=== PATIENT | female | born 1980 | race Hispanic/Latino ===

== ENCOUNTER 2019-02-18 19:40 | Emergency (ER) | payer OTHER ==
[2019-02-18 20:37] VITALS: BP 138/79; PULSE 56; RESP 16; TEMP 99; O2SAT 100
[2019-02-18] MEDS ORDERED: Tdap Vaccine 0.5 ml Vial (10-64 yrs) IM ONE ×2 (20:56→21:45)
--- NOTE | 2019-02-18 21:16 | ED PDOC ---
HPI: Skin/Bite Injury Time Seen by Provider: 02/18/19 20:41 Chief Complaint (Nursing): Abnormal Skin Integrity Chief Complaint (Provider): Abnormal Skin Integrity History Per: Patient History/Exam Limitations: no limitations Onset/Duration Of Symptoms: Hrs (@715 pm today ) Current Symptoms Are (Timing): Still Present Additional Complaint(s): Patient is a 38 year old female who presents to the emergency department after cutting herself with a knife at 715pm today. She states she was using a knife to cut a box and accidentally cut her right thumb. She is unsure of her tetanus. Patient states she has minimal pain. She states she rinsed it with water but did not take any medication [facility] [employer]. No other complaints at present. Patient is left hand dominant. PMD: lori LMP: x1 month ago Past Medical History Reviewed: Historical Data, Nursing Documentation, Vital Signs Vital Signs: Last Vital Signs Temp 99.0 F 02/18/19 20:34 Pulse 56 L 02/18/19 20:34 Resp 16 02/18/19 20:34 BP 138/79 02/18/19 20:34 Pulse Ox 100 02/18/19 20:34 - Medical History PMH: No Chronic Diseases - Surgical History Surgical History: (x3) - Family History Family History: States: Unknown Family Hx - Home Medications Home Medications: Ambulatory Orders Medication Instructions Recorded Acetaminophen [Acetaminophen 8 650 mg PO Q8 PRN #21 tablet.er 02/18/19 Hour] - Allergies Allergies/Adverse Reactions: Allergies Allergy/AdvReac Type Severity Reaction Status Date / Time No Known Allergies Allergy Verified 02/18/19 20:34 Review of Systems ROS Statement: Except As Marked, All Systems Reviewed And Found Negative Musculoskeletal: Positive for: Hand Pain (cut her hand ) Physical Exam - Reviewed Nursing Documentation Reviewed: Yes Vital Signs Reviewed: Yes - Physical Exam Comments: GENERAL APPEARANCE: Patient is awake, alert, oriented x 3, in no acute distress. Resting comfortably. SKIN: Warm, dry; (-) cyanosis. NECK: Supple, FROM CHEST AND RESPIRATORY: (-) rales, (-) rhonchi, (-) wheezes; breath sounds equal bilaterally. Respirations even and nonlabored. HEART AND CARDIOVASCULAR: (-) irregularity RIGHT UPPER EXTREMITY: Right hand: dorsum of the PIP of the thumb has a 1cm "U" shaped superficial laceration with skin flap intact(-) active bleeding (-) ecchymosis (-) erythema. Full ROM of thumb with minimal tenderness at the laceration site. Sensation and capillary refill intact. Remainder of hand is nontender with full ROM. NEURO AND PSYCH: Mental status as above. Gait: steady. Speech: clear. (-) facial asymmetry (-) aphasia - ECG O2 Sat by Pulse Oximetry: 100 (RA) Pulse Ox Interpretation: Normal Medical Decision Making Medical Decision Making: Time: 2054 Impression: finger laceration Plan: --Tetanus 0.5 ml IM --Dermabond --Tylenol 650mg PO --Re-evaluation Time: 2119 --Patient's wound was irrigated with normal saline and closed with dermabond by Bettye VILLARREAL. No complications and patient was educated on proper wound care. Time: 2134 --Patient was placed in Aluminum finger splint to prevent finger flexion as the laceration site located over the joint. Based on history, exam and diagnostic results, plan will be for outpatient follow up with PMD. Patient instructed to follow-up with pmd / referral provided / the clinic in 1- 2 days without fail. Advised to take medication as prescribed. Return to the emergency room at any time for any new or worsening symptoms. Patient states she fully agrees with and understands discharge instructions. States that she agrees with the plan and disposition. Verbalized and repeated discharge instructions and plan. I have given the patient opportunity to ask any additional questions. Scribe Attestation: Documented by Faraz Alvarenga acting as a scribe for Deena Méndez Provider Scribe Attestation: All medical record entries made by the Scribe were at my direction and personally dictated by me. I have reviewed the chart and agree that the record accurately reflects my personal performance of the history, physical exam, medical decision making, and the department course for this patient. I have also personally directed, reviewed, and agree with the discharge instructions and disposition. Disposition - Clinical Impression Clinical Impression: Finger laceration - Patient ED Disposition Is Patient to be Admitted: No Counseled Patient/Family Regarding: Studies Performed, Diagnosis, Need For Followup, Rx Given - Disposition Referrals: [facility] [Provider Group] Disposition: Routine/Home Disposition Time: 22:00 Condition: STABLE Additional Instructions: The emergency medical care you received today was directed at your acute symptoms. If you were prescribed any medication, please fill it and take as directed. It may take several days for your symptoms to resolve. Return to the Emergency Department if your symptoms worsen, do not improve, or if you have any other problems. Please contact your doctor in 2 days for re-evaluation and follow up / or call one of the physicians/clinics you have been referred to that are listed on the Patient Visit Information form that is included in your discharge packet. Bring any paperwork you were given at discharge with you along with any medications you are taking to your follow up visit. Our treatment cannot replace ongoing medical care by a primary care provider (PCP) outside of the emergency d epartment. Prescriptions: Acetaminophen [Acetaminophen 8 Hour] 650 mg PO Q8 PRN #21 tablet.er PRN Reason: Pain, Moderate (4-7) Instructions: Laceration Repair With Glue (DC), Wound Care (DC), Common Finger Injuries (DC) Forms: [employer] (Swedish) Print Language: MARTINIQUAIS - POA Present On Arrival: None
== END 2019-02-18 22:24 | disposition home or self-care (01) ==
LOC: H.ER 19:40
DX: S61.011A Laceration without foreign body of right thumb without damage to nail, initial encounter (principal); W26.0XXA Contact with knife, initial encounter; Y92.89 Other specified places as the place of occurrence of the external cause